=== PATIENT | male | born 1960 | race Hispanic/Latino ===

== ENCOUNTER 2021-01-11 18:35 | Inpatient (IN) | payer MEDICAID ==
[2021-01-11] MEDS ORDERED: ACETAMINOPHEN 325 MG TAB PO PRN (22:52)
--- NOTE | 2021-01-12 08:40 | History and Physical Report ---
GP History & Physical - History of Present Illness Date of admission: 01/11/21 Date of Examination: 01/12/21 Reason for Admission: Danger to self, Failure of Outpatient Treatment, Severe anxiety/depression History of Present Illness: Per admission note: Patient was admitted 01/12/20 at 2320. He was accompianed by [employer] employees. He is well groomed and wearing hospital scrubs. Patient presents as anxious. He is pleasant and cooperative. Patient is a & o x 4. He is able to give information regarding his medications and health hx. This patient states he has suffered from depression and anxiety for a long time. He has tried multiple medications. 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 He states he was using Suboxone after getting "hooked" on opiates. He reports it worked for him. He states he took it twice daily and never needed to take more but did not feel high. Patient has a long history of multiple suicide attempts by OD and cutting himself. He reports cutting relieves tension and ties into his not fearing . He states living with mental health issues has been difficult for him. Patient reports living by himself. He began to feel like cutting himself and went to the ED. Patient signed admission paperwork and was oriented to the unit. He presents as calmer than when he arrived. Tera Solis is a 60y/o male patient who states he was admitted into the hospital for "opiate addiction, SI, depression, and hallucinations." He is calm, cooperative and polite. The patient says he's been "very anxious and depressed." He says he "sees shadows, things crawling out of the carpet, and hears sasha nds."The patient denies any illicit drug. He says he's been clean from ETOH for about 6 months. He says he uses "nicotine patches." PAST PSYCHIATRIC HISTORY: Diagnoses: Depression Suicide attempts or Self-harm behavior: Yes Prior psychiatric hospitalizations: Yes Substance Abuse history: Opiates Previous psychiatric medications tried: Yes Outpatient treatment: Yes PAST MEDICAL HISTORY: None reported Family Psychiatric History: None reported or documented SOCIAL HISTORY Marital Status: single Living Arrangements: alone Employment Status: Disabled Access to guns/weapons: Denies Education: Some high school History of Abuse: None reported Legal History: None reported REVIEW OF SYSTEMS Constitutional: Negative for weight loss ENT: Negative for stridor Respiratory: Negative for cough or hemoptysis All other systems reviewed and are negative MENTAL STATUS EXAMINATION General Appearance and Behavior: Age appropriate, good hygiene, wearing appropriate clothes, good eye contact, cooperative polite with questioning. Cooperation: Participating/engaged Psychomotor Behavior: Psychomotor normal Mood: "depressed, anxious" Affect and affective range: congruent with stated mood Thought Process: Circumstantial, Illogical, Thought Content: SI, hallucinations Speech: Normal tone and pace Suicidal Ideation: Yes Homicidal Ideation: Denies Impulse Control: Limited Insight and Judgment: Limited insight and judgment Memory: Limited Attention: Divided attention impaired Orientation: Alert, oriented, Assessment and Plan (1) MDD, severe, with psychotic features Current Visit: Yes Status: Acute Treatment Plan Patient admitted for inpatient psychiatric evaluation, medication adjustment and close monitoring The patient's behavior, mood, sleep and appetite will be closely monitored. Patient enrolled in individual and group therapeutic sessions and encouraged to attend. Patient provided with a safe and structured environment. Patient's physical health needs will be addressed by the Hospitalist. Hospitalist Consulted Labs including CBC, CMP, Lipid profile and Hemoglobin A1C levels ordered for baseline reference Social Assessment will be completed and the Project Architect will work with patient and family to ensure a suitable and safe disposition Medication adjustment will be made as clinically indicated Olanzapine 2.5mg po daily Trazodone 50mg po qd Vistaril 25mg po BID Continued home medications Usual Wellness Congregation/Preservation: - Start Trazodone 50 mg po QHS & 50 mg po QHS PRN between 10 PM & 2 AM for insomnia - Start Melatonin 5 mg po QHS to promote circadian rhythm - Start [place]-3 for brain health, reduce impulsivity, and as adjunctive treatment for mood disorder, continue upon discharge given overall benefits. - Start B1 prophylaxis with 200 mg po for 5 days The patient agreed on the treatment plan, understood the risk, benefit, alternative treatment, potential consequence of no treatment, and gave informed consent. Estimated days: 2 Post hospital care: primary care provider, psychiatric provider Case staffed with Dr. Patton Legal Status: Voluntary Reaction to Hospitalization: Accepting Medications and Allergies Allergies Allergy/AdvReac Type Severity Reaction Status Date / Time aripiprazole Allergy Unknown Verified 01/11/21 19:00 Penicillins Allergy Unknown Verified 01/11/21 19:00 Home Medications Medication Instructions Recorded Confirmed Last Taken Type carvediloL [Coreg] 25 mg PO BID 01/11/21 01/11/21 Unknown History Amlodipine Besylate [Norvasc] 10 mg PO DAILY 01/12/21 01/12/21 Unknown History Aspirin EC [Halfprin EC] 81 mg PO QDAY 01/12/21 01/12/21 Unknown History AtorvaSTATin [Lipitor] 40 mg PO QHS 01/12/21 01/12/21 Unknown History Duloxetine HCl 60 mg PO DAILY 01/12/21 01/12/21 Unknown History Fenofibrate Nanocrystallized 48 mg PO DAILY 01/12/21 01/12/21 Unknown History [Fenofibrate] Gabapentin [Neurontin] 600 mg PO TID 01/12/21 01/12/21 Unknown History Sitagliptin Phos/Metformin HCl 1 each PO BID 01/12/21 01/12/21 Unknown History [Janumet 50-1,000 mg Tablet] Active Meds: Active Medications Acetaminophen (Acetaminophen 325 Mg Tab) 650 mg PO Q6H PRN PRN Reason: Pain, Mild (1-3) Trazodone HCl (Trazodone 50 Mg Tab) 50 mg PO QHS PRN PRN Reason: Insomnia Results - Results Labs/Vitals: Last Vital Signs Temp 97.5 F L 01/12/21 01:05 Pulse 85 01/12/21 01:05 Resp 18 01/12/21 01:05 BP 118/79 01/12/21 01:05 Pulse Ox 96 01/12/21 01:05 Physical Examination - Constitutional Vitals: Vital Signs Temp Pulse Resp BP Pulse Ox 97.5 F L 85 18 118/79 96 01/12/21 01:05 01/12/21 01:05 01/12/21 01:05 01/12/21 01:05 01/12/21 01:05 Temperature -Last 24 Hours Temperature 97.5 F Mental Status Exam - Vital signs Last Vital Signs Temp 97.5 F L 01/12/21 01:05 Pulse 85 01/12/21 01:05 Resp 18 01/12/21 01:05 BP 118/79 01/12/21 01:05 Pulse Ox 96 01/12/21 01:05 Physician Certification - Certification Statement Physician Certification Statement: This is an acknowledgement statement that TERA SOLIS is a 60 year old M who requires inpatient psychiatric admission for treatment which could reasonably be expected to improve the patient's condition for Estimated period of time patient will need to remain in the hospital: [ ] Plan for post-hospital care: [ ]
[2021-01-12] MEDS ORDERED: amLODIPine 5 MG TAB PO SCH (10:00)
[2021-01-12] MEDS ORDERED: NON-FORMULARY EACH (Duloxetine Hcl [Duloxetine Hcl] 60 MG Capsule.Dr) PO SCH (10:00)
[2021-01-12] MEDS ORDERED: hydrOXYzine PAMOATE 25 MG CAP PO SCH (10:00)
[2021-01-12] MEDS ORDERED: NON-FORMULARY EACH (Sitagliptin Phos/Metformin Hcl [Janumet 50-1,000 Mg Tablet] 1 EACH Tab PO SCH (10:00)
[2021-01-12] MEDS: DULoxetine 30 MG CAP PO SCH (10:46)
[2021-01-12] MEDS: ASPIRIN EC 81 MG TAB PO SCH (10:46)
[2021-01-12] MEDS: FENOFIBRATE 48 MG TAB PO SCH (10:46)
[2021-01-12] MEDS: carvediloL 25 MG TAB PO SCH ×2 (10:47→21:14)
[2021-01-12] MEDS: amLODIPine 10 MG TAB PO SCH (10:47)
--- NOTE | 2021-01-12 11:08 | Consultation ---
History of Present Illness - Reason for Consult Consult date: 01/12/21 Medical consult Requesting physician: JENNY BROWN - History of Present Illness 60-year-old male patient with multiple medical problems was admitted to [facility] for further evaluation management of MDD with psychotic symptoms. Hospitalist service was requested for medical consult. I have seen and evaluated the patient in his room Patient is calm and composed, responds to simple questions appropriately, no agitation or aggression Patient follows with his primary care physician, and reports that he is compliant with medications. Patient denies any chest pain or shortness of breath Denies any headache or dizziness Denies nausea vomiting or abdominal pain No other symptoms Past History Past Medical History: diabetes, GERD, hypertension, hyperlipidemia, hypothyroidism, other (Peripheral neuropathy, major depressive disorder with psychotic symptoms) Past Surgical History: No surgical history Social history: denies: smoking, alcohol abuse, prescription drug abuse Family history: no significant family history Medications and Allergies Allergies Allergy/AdvReac Type Severity Reaction Status Date / Time aripiprazole Allergy Unknown Verified 01/11/21 19:00 Penicillins Allergy Unknown Verified 01/11/21 19:00 Home Medications Medication Instructions Recorded Confirmed Last Taken Type carvediloL [Coreg] 25 mg PO BID 01/11/21 01/11/21 Unknown History Amlodipine Besylate [Norvasc] 10 mg PO DAILY 01/12/21 01/12/21 Unknown History Aspirin EC [Halfprin EC] 81 mg PO QDAY 01/12/21 01/12/21 Unknown History AtorvaSTATin [Lipitor] 40 mg PO QHS 01/12/21 01/12/21 Unknown History Duloxetine HCl 60 mg PO DAILY 01/12/21 01/12/21 Unknown History Fenofibrate Nanocrystallized 48 mg PO DAILY 01/12/21 01/12/21 Unknown History [Fenofibrate] Gabapentin [Neurontin] 600 mg PO TID 01/12/21 01/12/21 Unknown History Sitagliptin Phos/Metformin HCl 1 each PO BID 01/12/21 01/12/21 Unknown History [Janumet 50-1,000 mg Tablet] Active Meds: Active Medications Acetaminophen (Acetaminophen 325 Mg Tab) 650 mg PO Q6H PRN PRN Reason: Pain, Mild (1-3) Amlodipine Besylate (Amlodipine 10 Mg Tab) 10 mg PO DAILY [facility] Last Admin: 01/12/21 10:47 Dose: 10 mg Documented by: Aspirin (Aspirin Ec 81 Mg Tab) 81 mg PO QDAY [facility] Last Admin: 01/12/21 10:46 Dose: 81 mg Documented by: Atorvastatin Calcium (Atorvastatin 40 Mg Tab) 40 mg PO QHS [facility] Carvedilol (Carvedilol 25 Mg Tab) 25 mg PO BID [facility] Last Admin: 01/12/21 10:47 Dose: 25 mg Documented by: Duloxetine HCl (Duloxetine 30 Mg Cap) 60 mg PO QDAY [facility] Last Admin: 01/12/21 10:46 Dose: 60 mg Documented by: Fenofibrate (Fenofibrate 48 Mg Tab) 48 mg PO DAILY [facility] Last Admin: 01/12/21 10:46 Dose: 48 mg Documented by: Gabapentin (Gabapentin 300 Mg Cap) 600 mg PO Q8HR [facility] Hydroxyzine Pamoate (Hydroxyzine Pamoate 25 Mg Cap) 25 mg PO BID [facility] Miscellaneous Medication (Sitagliptin Phos/Metformin Hcl [Janumet 50-1,000 Mg Tablet]) 1 each PO BID [facility] Olanzapine (Olanzapine 2.5 Mg Tab) 2.5 mg PO QDAY [facility] Last Admin: 01/12/21 10:46 Dose: 2.5 mg Documented by: Trazodone HCl (Trazodone 50 Mg Tab) 50 mg PO QHS PRN PRN Reason: Insomnia Review of Systems Constitutional: no weight loss, no weight gain, no fever, no chills Ears, nose, mouth and throat: no nasal congestion, no nasal discharge Cardiovascular: no chest pain, no orthopnea Respiratory: no cough, no shortness of breath Gastrointestinal: no abdominal pain, no nausea, no vomiting Genitourinary Male: no dysuria, no hematuria Musculoskeletal: no myalgias, no arthritis Integumentary: no rash, no lesions Neurological: no seizures, no syncope Psychiatric: anxiety, paranoia, depression Endocrine: no cold intolerance, no heat intolerance Hematologic/Lymphatic: no easy bruising, no easy bleeding Allergic/Immunologic: no urticaria, no allergic rhinitis Exam - Constitutional Vitals: Temp Pulse Resp BP Pulse Ox 97.7 F 83 18 115/77 95 01/12/21 08:05 01/12/21 10:47 01/12/21 08:05 01/12/21 10:47 01/12/21 08:05 General appearance: Present: no acute distress, well-nourished, obese - EENT Eyes: Present: PERRL, EOM intact - Neck Neck: Present: supple, normal ROM - Respiratory Respiratory effort: normal Respiratory: bilateral: diminished, negative: rales, rhonchi, wheezing - Cardiovascular Rhythm: regular Heart Sounds: Present: S1 & S2 - Extremities Extremities: no ischemia, No edema - Abdominal General gastrointestinal: Present: soft, non-tender, non-distended, normal bowel sounds - Integumentary Integumentary: Present: clear, warm - Musculoskeletal Musculoskeletal: strength equal bilaterally, generalized weakness - Psychiatric Psychiatric: appropriate mood/affect, cooperative - Neurologic Neurologic: moves all extremities Results - Labs CBC & Chem 7: 01/12/21 13:19 01/12/21 13:19 Assessment and Plan --History of GERD; Protonix, supportive care --Hypertension; moderate control Resume home antihypertensives, as needed medications --Hypothyroidism; resume home Synthroid Supportive care --Type 2 diabetes mellitus; Accu-Cheks, sliding scale coverage, ADA diet Oral hypoglycemics, check A1c --Dyslipidemia; Low-cholesterol diet, continue statin --Obesity; BMI 33.2 Patient needs weight reduction when medically stable --History of bipolar/acute psychosis; management per psych --DVT prophylaxis; SCDs while at rest, ambulate as tolerated --Full CODE STATUS we will closely monitor the patient and adjust the management as needed Thank you for this consultation, we will follow the patient along with you as needed Call us with questions Plan of care reviewed with the patient his nurse
[2021-01-12 13:50] LABS: Basophils % (Auto) 0.6 % (0.0-1.8); Eosinophils # (Auto) 0.1 K/mm3 (0.0-0.4); Eosinophils % (Auto) 2.1 % (0.0-4.3); Hematocrit 40.2 % (35.5-45.6); Hemoglobin 13.3 gm/dl (11.8-15.2); Lymphocytes # (Auto) 1.6 K/mm3 (1.2-5.4); Lymphocytes % (Auto) 25.9 % (13.4-35.0); Mean Corpuscular HGB Conc 33 % (32-34); Mean Corpuscular Volume 87 fl (84-94); Monocytes # (Auto) 0.6 K/mm3 (0.0-0.8); Monocytes % (Auto) 8.9 % (0.0-7.3); Platelet Count 277 K/mm3 (140-440); Red Blood Count 4.62 M/mm3 (3.65-5.03); Red Cell Distribution Width 15.1 % (13.2-15.2)
[2021-01-12] MEDS ORDERED: NON-FORMULARY EACH (Gabapentin [Neurontin] 600 MG Tablet) PO SCH (14:00)
[2021-01-12 14:13] LABS: Alanine Aminotransferase 20 units/L (7-56); Albumin 3.8 g/dL (3.9-5); BUN/Creatinine Ratio 18; Blood Urea Nitrogen 14 mg/dL (9-20); HDL Cholesterol 15 mg/dL (40-59); Hemolysis Index 9; LDL Cholesterol,Direct 30 mg/dL (50-130)
[2021-01-12] MEDS: GABAPENTIN 300 MG CAP PO SCH ×2 (14:14→21:14)
[2021-01-12] MEDS: hydrOXYzine HCL 25 MG TAB PO SCH ×2 (14:15→21:13)
[2021-01-12] MEDS: INSULIN LISPRO 100 UNIT/ML SUB-Q SCH ×2 (17:57→21:16)
[2021-01-12] MEDS ORDERED: traZODone 50 MG TAB PO SCH (22:00)
[2021-01-12] MEDS ORDERED: traZODone 50 MG TAB PO PRN (22:00)
[2021-01-13] MEDS: GABAPENTIN 300 MG CAP PO SCH ×2 (06:37→21:21)
--- NOTE | 2021-01-13 08:49 | Progress Note ---
Subjective Date of service: 01/13/21 Principal diagnosis: MDD with psychotic features Subjective Comment: The patient was seen today, he still verbalizes depression and "passive thoughts" of suicide. H says he has this thought "of not wanting to be around any more." The patient denies hallucinations at this time. He says he was restless last night. REVIEW OF SYSTEMS Constitutional: Negative for weight loss ENT: Negative for stridor Respiratory: Negative for cough or hemoptysis All other systems reviewed and are negative MENTAL STATUS EXAMINATION General Appearance and Behavior: Age appropriate, good hygiene, wearing appropriate clothes, good eye contact, cooperative polite with questioning. Cooperation: Participating/engaged Psychomotor Behavior: Psychomotor normal Mood: "depressed" Affect and affective range: congruent with stated mood Thought Process: Circumstantial, Illogical, Thought Content: SI, hallucinations Speech: Normal tone and pace Suicidal Ideation: Yes Homicidal Ideation: Denies Impulse Control: Limited Insight and Judgment: Limited insight and judgment Memory: Limited Attention: Divided attention impaired Orientation: Alert, oriented, Assessment and Plan (1) MDD, severe, with psychotic features Current Visit: Yes Status: Acute Treatment Plan Patient admitted for inpatient psychiatric evaluation, medication adjustment and close monitoring The patient's behavior, mood, sleep and appetite will be closely monitored. Patient enrolled in individual and group therapeutic sessions and encouraged to attend. Patient provided with a safe and structured environment. Patient's physical health needs will be addressed by the Hospitalist. Hospitalist Consulted Labs including CBC, CMP, Lipid profile and Hemoglobin A1C levels ordered for baseline reference Social Assessment will be completed and the Flight Controls Engineer will work with patient and family to ensure a suitable and safe disposition Medication adjustment will be made as clinically indicated Continue Olanzapine 2.5mg po daily Increase Trazodone 75mg po qd Continue Vistaril 25mg po BID Continued home medications Usual Wellness Presybeterian/Preservation: - Start Trazodone 50 mg po QHS & 50 mg po QHS PRN between 10 PM & 2 AM for insomnia - Start Melatonin 5 mg po QHS to promote circadian rhythm - Start [employer]-3 for brain health, reduce impulsivity, and as adjunctive treatment for mood disorder, continue upon discharge given overall benefits. - Start B1 prophylaxis with 200 mg po for 5 days The patient agreed on the treatment plan, understood the risk, benefit, alternative treatment, potential consequence of no treatment, and gave informed consent. Estimated days: 2 Post hospital care: primary care provider, psychiatric provider Case staffed with Dr. Patton Medications and Allergies Allergies Allergy/AdvReac Type Severity Reaction Status Date / Time aripiprazole Allergy Unknown Verified 01/11/21 19:00 Penicillins Allergy Unknown Verified 01/11/21 19:00 Home Medications Medication Instructions Recorded Confirmed Last Taken Type carvediloL [Coreg] 25 mg PO BID 01/11/21 01/11/21 Unknown History Amlodipine Besylate [Norvasc] 10 mg PO DAILY 01/12/21 01/12/21 Unknown History Aspirin EC [Halfprin EC] 81 mg PO QDAY 01/12/21 01/12/21 Unknown History AtorvaSTATin [Lipitor] 40 mg PO QHS 01/12/21 01/12/21 Unknown History Duloxetine HCl 60 mg PO DAILY 01/12/21 01/12/21 Unknown History Fenofibrate Nanocrystallized 48 mg PO DAILY 01/12/21 01/12/21 Unknown History [Fenofibrate] Gabapentin [Neurontin] 600 mg PO TID 01/12/21 01/12/21 Unknown History Sitagliptin Phos/Metformin HCl 1 each PO BID 01/12/21 01/12/21 Unknown History [Janumet 50-1,000 mg Tablet] Active Meds: Active Medications Acetaminophen (Acetaminophen 325 Mg Tab) 650 mg PO Q6H PRN PRN Reason: Pain, Mild (1-3) Amlodipine Besylate (Amlodipine 10 Mg Tab) 10 mg PO DAILY [facility] Last Admin: 01/12/21 10:47 Dose: 10 mg Documented by: Aspirin (Aspirin Ec 81 Mg Tab) 81 mg PO QDAY [facility] Last Admin: 01/12/21 10:46 Dose: 81 mg Documented by: Atorvastatin Calcium (Atorvastatin 40 Mg Tab) 40 mg PO QHS [facility] Last Admin: 01/12/21 21:14 Dose: 40 mg Documented by: Carvedilol (Carvedilol 25 Mg Tab) 25 mg PO BID [facility] Last Admin: 01/12/21 21:14 Dose: 25 mg Documented by: Duloxetine HCl (Duloxetine 30 Mg Cap) 60 mg PO QDAY [facility] Last Admin: 01/12/21 10:46 Dose: 60 mg Documented by: Fenofibrate (Fenofibrate 48 Mg Tab) 48 mg PO DAILY [facility] Last Admin: 01/12/21 10:46 Dose: 48 mg Documented by: Gabapentin (Gabapentin 300 Mg Cap) 600 mg PO Q8HR [facility] Last Admin: 01/13/21 06:37 Dose: 600 mg Documented by: Hydroxyzine HCl (Hydroxyzine Hcl 25 Mg Tab) 25 mg PO BID [facility] Last Admin: 01/12/21 21:13 Dose: 25 mg Documented by: Insulin Human Lispro (Insulin Lispro 100 Unit/Ml) 0 unit SUB-Q ACHS [facility]; Protocol Last Admin: 01/12/21 21:16 Dose: Not Given Documented by: Linagliptin (Linagliptin 5 Mg Tab) 5 mg PO QDAY [facility] Metformin HCl (Metformin 500 Mg Tab) 1,000 mg PO BIDDIAB [facility] Olanzapine (Olanzapine 2.5 Mg Tab) 2.5 mg PO QDAY [facility] Last Admin: 01/12/21 10:46 Dose: 2.5 mg Documented by: Trazodone HCl (Trazodone 50 Mg Tab) 50 mg PO QHS PRN PRN Reason: Insomnia Last Admin: 01/12/21 21:15 Dose: 50 mg Documented by: Results - Results Labs/Vitals: Laboratory Last Values WBC 6.3 K/mm3 (4.5-11.0) 01/12/21 13:19 RBC 4.62 M/mm3 (3.65-5.03) 01/12/21 13:19 Hgb 13.3 gm/dl (11.8-15.2) 01/12/21 13:19 Hct 40.2 % (35.5-45.6) 01/12/21 13:19 MCV 87 fl (84-94) 01/12/21 13:19 MCH 29 pg (28-32) 01/12/21 13:19 MCHC 33 % (32-34) 01/12/21 13:19 RDW 15.1 % (13.2-15.2) 01/12/21 13:19 Plt Count 277 K/mm3 (140-440) 01/12/21 13:19 Lymph % (Auto) 25.9 % (13.4-35.0) 01/12/21 13:19 [place] % (Auto) 8.9 % (0.0-7.3) H 01/12/21 13:19 Eos % (Auto) 2.1 % (0.0-4.3) 01/12/21 13:19 Baso % (Auto) 0.6 % (0.0-1.8) 01/12/21 13:19 Lymph # (Auto) 1.6 K/mm3 (1.2-5.4) 01/12/21 13:19 [place] # (Auto) 0.6 K/mm3 (0.0-0.8) 01/12/21 13:19 Eos # (Auto) 0.1 K/mm3 (0.0-0.4) 01/12/21 13:19 Baso # (Auto) 0.0 K/mm3 (0.0-0.1) 01/12/21 13:19 Seg Neutrophils % 62.5 % (40.0-70.0) 01/12/21 13:19 Seg Neutrophils # 3.9 K/mm3 (1.8-7.7) 01/12/21 13:19 Sodium 139 mmol/L (137-145) 01/12/21 13:19 Potassium 4.5 mmol/L (3.6-5.0) 01/12/21 13:19 Chloride 101.4 mmol/L (98-107) 01/12/21 13:19 Carbon Dioxide 29 mmol/L (22-30) 01/12/21 13:19 Anion Gap 13 mmol/L 01/12/21 13:19 BUN 14 mg/dL (9-20) 01/12/21 13:19 Creatinine 0.8 mg/dL (0.8-1.3) 01/12/21 13:19 Estimated GFR > 60 ml/min 01/12/21 13:19 BUN/Creatinine Ratio 18 % 01/12/21 13:19 Glucose 157 mg/dL (75-100) H 01/12/21 13:19 POC Glucose 117 mg/dL (70-105) H 01/12/21 20:13 Hemoglobin A1c 6.4 % (4-6) H 01/12/21 13:19 Calcium 9.0 mg/dL (8.4-10.2) 01/12/21 13:19 Total Bilirubin 0.40 mg/dL (0.1-1.2) 01/12/21 13:19 AST 28 units/L (5-40) 01/12/21 13:19 ALT 20 units/L (7-56) 01/12/21 13:19 Alkaline Phosphatase 77 units/L (35-129) 01/12/21 13:19 Total Protein 6.1 g/dL (6.3-8.2) L 01/12/21 13:19 Albumin 3.8 g/dL (3.9-5) L 01/12/21 13:19 Albumin/Globulin Ratio 1.7 % 01/12/21 13:19 Triglycerides 161 mg/dL (2-149) H 01/12/21 13:19 Cholesterol 66 mg/dL (50-199) 01/12/21 13:19 LDL Cholesterol Direct 30 mg/dL (50-130) L 01/12/21 13:19 HDL Cholesterol 15 mg/dL (40-59) L 01/12/21 13:19 Cholesterol/HDL Ratio 4.40 % 01/12/21 13:19 TSH 0.620 mlU/mL (0.270-4.200) 01/12/21 13:19 Last Vital Signs Temp 97.8 F 01/12/21 19:45 Pulse 76 01/12/21 21:14 Resp 16 01/12/21 19:45 BP 100/66 01/12/21 21:14 Pulse Ox 95 01/12/21 19:45
[2021-01-13] MEDS: amLODIPine 10 MG TAB PO SCH (10:56)
[2021-01-13] MEDS: FENOFIBRATE 48 MG TAB PO SCH (10:56)
[2021-01-13] MEDS: ASPIRIN EC 81 MG TAB PO SCH (10:57)
[2021-01-13] MEDS: DULoxetine 30 MG CAP PO SCH (10:58)
[2021-01-13] MEDS: carvediloL 25 MG TAB PO SCH ×2 (10:58→21:21)
[2021-01-13] MEDS: LINAGLIPTIN 5 MG TAB PO SCH (10:59)
[2021-01-13] MEDS: hydrOXYzine HCL 25 MG TAB PO SCH ×2 (11:00→21:20)
[2021-01-13] MEDS: traZODone 50 MG TAB PO SCH (21:20)
[2021-01-13] MEDS ORDERED: cloNIDine 0.1 MG TAB PO PRN (21:59)
[2021-01-14] MEDS: GABAPENTIN 300 MG CAP PO SCH ×4 (06:23→21:27)
[2021-01-14] MEDS: INSULIN LISPRO 100 UNIT/ML SUB-Q SCH ×7 (07:30→21:31)
--- NOTE | 2021-01-14 08:19 | Progress Note ---
Subjective Date of service: 01/14/21 Principal diagnosis: MDD with psychotic features Subjective Comment: Per Psych Nurse: Last evening the patient was pleasant and cooperative. He continues to be depressed. He admits to continued si. His appetite is good and he is medication compliant. Overnight the patient rested quietly. He presents as sleeping 8 hours. Will continue to monitor patient for safety. Psych Progress HPI Patient describes a good and stable mood, denies being depressed or excessively nervous. Patient eats and sleeps well. Patient denies panic attacks, recurrent nightmares or flashbacks. Patient denies symptoms suggestive of OCD or PTSD. Patient denies hallucinations, paranoia, thought interference and no features suggestive of hypomania or alli. Patiently completely denies suicidal or homicidal thoughts. Reason for continuing inpatient treatment:. Plan for safety discharge at this time Review of Symptoms: Constitutional: Negative for weight loss ENT: Negative for stridor Respiratory: Negative for cough or hemoptysis All other systems reviewed and are negative MENTAL STATUS EXAMINATION General Appearance and Behavior: Age appropriate, good hygiene, wearing appropriate clothes, good eye contact, cooperative polite with questioning. Cooperation: Participating/engaged Psychomotor Behavior: unremarkable and within normal limits Mood: Good Affect and affective range: congruent with mood Thought Process: Fluent/Logical, Thought Content: Within reality, Speech: Normal volume, Regular rate and rhythm, Intellectual Functioning: Average Suicidal Ideation: Denies SI Homicidal Ideation: Denies HI Impulse Control: Unimpaired Insight and Judgment: Normal insight and judgment, Memory: Normal, Attention: Normal, Orientation: Alert, oriented, Treatment Plan Continue current medications Patient admitted for inpatient psychiatric evaluation, medication adjustment and close monitoring The patient's behavior, mood, sleep and appetite will be closely monitored. Patient enrolled in individual and group therapeutic sessions and encouraged to attend. Patient provided with a safe and structured environment. Patient's physical health needs will be addressed by the Hospitalist. Hospitalist Consulted Labs including CBC, CMP, Lipid profile and Hemoglobin A1C levels ordered for baseline reference Social Assessment will be completed and the Molder Machine will work with patient and family to ensure a suitable and safe disposition Medication adjustment will be made as clinically indicated Usual Wellness Episcopal/Preservation: - Start Trazodone 50 mg po QHS & 50 mg po QHS PRN between 10 PM & 2 AM for insomnia - Start Melatonin 5 mg po QHS to promote circadian rhythm - Start [place]-3 for brain health, reduce impulsivity, and as adjunctive treatment for mood disorder, continue upon discharge given overall benefits. - Start B1 prophylaxis with 200 mg po for 5 days The patient agreed on the treatment plan, understood the risk, benefit, alternative treatment, potential consequence of no treatment, and gave informed consent. Initial Certification Inpatient psych services: I certify that the inpatient psychiatric services are required for treatment that could reasonably be expected to improve the patient's condition. Estimated days: 3 Post hospital care: primary care provider, psychiatric provider Medications and Allergies Allergies Allergy/AdvReac Type Severity Reaction Status Date / Time aripiprazole Allergy Unknown Verified 01/11/21 19:00 Penicillins Allergy Unknown Verified 01/11/21 19:00 Home Medications Medication Instructions Recorded Confirmed Last Taken Type carvediloL [Coreg] 25 mg PO BID 01/11/21 01/11/21 Unknown History Amlodipine Besylate [Norvasc] 10 mg PO DAILY 01/12/21 01/12/21 Unknown History Aspirin EC [Halfprin EC] 81 mg PO QDAY 01/12/21 01/12/21 Unknown History AtorvaSTATin [Lipitor] 40 mg PO QHS 01/12/21 01/12/21 Unknown History Duloxetine HCl 60 mg PO DAILY 01/12/21 01/12/21 Unknown History Fenofibrate Nanocrystallized 48 mg PO DAILY 01/12/21 01/12/21 Unknown History [Fenofibrate] Gabapentin [Neurontin] 600 mg PO TID 01/12/21 01/12/21 Unknown History Sitagliptin Phos/Metformin HCl 1 each PO BID 01/12/21 01/12/21 Unknown History [Janumet 50-1,000 mg Tablet] Active Meds: Active Medications Acetaminophen (Acetaminophen 325 Mg Tab) 650 mg PO Q6H PRN PRN Reason: Pain, Mild (1-3) Amlodipine Besylate (Amlodipine 10 Mg Tab) 10 mg PO DAILY [facility] Last Admin: 01/13/21 10:56 Dose: 10 mg Documented by: Aspirin (Aspirin Ec 81 Mg Tab) 81 mg PO QDAY [facility] Last Admin: 01/13/21 10:57 Dose: 81 mg Documented by: Atorvastatin Calcium (Atorvastatin 40 Mg Tab) 40 mg PO QHS [facility] Last Admin: 01/13/21 21:20 Dose: 40 mg Documented by: Carvedilol (Carvedilol 25 Mg Tab) 25 mg PO BID [facility] Last Admin: 01/13/21 21:21 Dose: 25 mg Documented by: Duloxetine HCl (Duloxetine 30 Mg Cap) 60 mg PO QDAY [facility] Last Admin: 01/13/21 10:58 Dose: 60 mg Documented by: Fenofibrate (Fenofibrate 48 Mg Tab) 48 mg PO DAILY [facility] Last Admin: 01/13/21 10:56 Dose: 48 mg Documented by: Gabapentin (Gabapentin 300 Mg Cap) 600 mg PO Q8HR [facility] Last Admin: 01/14/21 06:23 Dose: 600 mg Documented by: Hydroxyzine HCl (Hydroxyzine Hcl 25 Mg Tab) 25 mg PO BID [facility] Last Admin: 01/13/21 21:20 Dose: 25 mg Documented by: Insulin Human Lispro (Insulin Lispro 100 Unit/Ml) 0 unit SUB-Q ACHS [facility]; Protocol Last Admin: 01/12/21 21:16 Dose: Not Given Documented by: Linagliptin (Linagliptin 5 Mg Tab) 5 mg PO QDAY [facility] Last Admin: 01/13/21 10:59 Dose: 5 mg Documented by: Metformin HCl (Metformin 500 Mg Tab) 1,000 mg PO BIDDIAB [facility] Olanzapine (Olanzapine 2.5 Mg Tab) 2.5 mg PO QDAY [facility] Last Admin: 01/12/21 10:46 Dose: 2.5 mg Documented by: Trazodone HCl (Trazodone 50 Mg Tab) 75 mg PO QHS [facility] Last Admin: 01/13/21 21:20 Dose: 75 mg Documented by: Results - Results Labs/Vitals: Laboratory Last Values WBC 6.3 K/mm3 (4.5-11.0) 01/12/21 13:19 RBC 4.62 M/mm3 (3.65-5.03) 01/12/21 13:19 Hgb 13.3 gm/dl (11.8-15.2) 01/12/21 13:19 Hct 40.2 % (35.5-45.6) 01/12/21 13:19 MCV 87 fl (84-94) 01/12/21 13:19 MCH 29 pg (28-32) 01/12/21 13:19 MCHC 33 % (32-34) 01/12/21 13:19 RDW 15.1 % (13.2-15.2) 01/12/21 13:19 Plt Count 277 K/mm3 (140-440) 01/12/21 13:19 Lymph % (Auto) 25.9 % (13.4-35.0) 01/12/21 13:19 [place] % (Auto) 8.9 % (0.0-7.3) H 01/12/21 13:19 Eos % (Auto) 2.1 % (0.0-4.3) 01/12/21 13:19 Baso % (Auto) 0.6 % (0.0-1.8) 01/12/21 13:19 Lymph # (Auto) 1.6 K/mm3 (1.2-5.4) 01/12/21 13:19 [place] # (Auto) 0.6 K/mm3 (0.0-0.8) 01/12/21 13:19 Eos # (Auto) 0.1 K/mm3 (0.0-0.4) 01/12/21 13:19 Baso # (Auto) 0.0 K/mm3 (0.0-0.1) 01/12/21 13:19 Seg Neutrophils % 62.5 % (40.0-70.0) 01/12/21 13:19 Seg Neutrophils # 3.9 K/mm3 (1.8-7.7) 01/12/21 13:19 Sodium 139 mmol/L (137-145) 01/12/21 13:19 Potassium 4.5 mmol/L (3.6-5.0) 01/12/21 13:19 Chloride 101.4 mmol/L (98-107) 01/12/21 13:19 Carbon Dioxide 29 mmol/L (22-30) 01/12/21 13:19 Anion Gap 13 mmol/L 01/12/21 13:19 BUN 14 mg/dL (9-20) 01/12/21 13:19 Creatinine 0.8 mg/dL (0.8-1.3) 01/12/21 13:19 Estimated GFR > 60 ml/min 01/12/21 13:19 BUN/Creatinine Ratio 18 % 01/12/21 13:19 Glucose 157 mg/dL (75-100) H 01/12/21 13:19 POC Glucose 141 mg/dL (70-105) H 01/13/21 20:00 Hemoglobin A1c 6.4 % (4-6) H 01/12/21 13:19 Calcium 9.0 mg/dL (8.4-10.2) 01/12/21 13:19 Total Bilirubin 0.40 mg/dL (0.1-1.2) 01/12/21 13:19 AST 28 units/L (5-40) 01/12/21 13:19 ALT 20 units/L (7-56) 01/12/21 13:19 Alkaline Phosphatase 77 units/L (35-129) 01/12/21 13:19 Total Protein 6.1 g/dL (6.3-8.2) L 01/12/21 13:19 Albumin 3.8 g/dL (3.9-5) L 01/12/21 13:19 Albumin/Globulin Ratio 1.7 % 01/12/21 13:19 Triglycerides 161 mg/dL (2-149) H 01/12/21 13:19 Cholesterol 66 mg/dL (50-199) 01/12/21 13:19 LDL Cholesterol Direct 30 mg/dL (50-130) L 01/12/21 13:19 HDL Cholesterol 15 mg/dL (40-59) L 01/12/21 13:19 Cholesterol/HDL Ratio 4.40 % 01/12/21 13:19 TSH 0.620 mlU/mL (0.270-4.200) 01/12/21 13:19 Last Vital Signs Temp 97.4 F L 01/13/21 07:15 Pulse 94 H 01/13/21 21:21 Resp 20 01/13/21 07:15 BP 109/66 01/13/21 21:21 Pulse Ox 95 01/13/21 07:15
--- NOTE | 2021-01-14 12:21 | Progress Note ---
Assessment and Plan Assessment and plan: --History of GERD; Protonix, supportive care --Hypertension; moderate control Resume home antihypertensives, as needed medications --Hypothyroidism; resume home Synthroid Supportive care --Type 2 diabetes mellitus; Accu-Cheks, sliding scale coverage, ADA diet Oral hypoglycemics, A1c 6.4 --Dyslipidemia; Low-cholesterol diet, continue statin --Obesity; BMI 33.2 Patient needs weight reduction when medically stable --History of bipolar/acute psychosis; management per psych --DVT prophylaxis; SCDs while at rest, ambulate as tolerated --Full CODE STATUS we will closely monitor the patient and adjust the management as needed Continue current management Plan of care reviewed with the patient his nurse History Interval history: I have seen and examined the patient in the activity room this morning No new complaints, no new events reported by the nursing staff Hospitalist Physical - Constitutional Vitals: Temp Pulse Resp BP Pulse Ox 97.4 F L 94 H 20 109/66 95 01/13/21 07:15 01/13/21 21:21 01/13/21 07:15 01/13/21 21:21 01/13/21 07:15 General appearance: Present: no acute distress, well-nourished, obese - EENT Eyes: Present: PERRL, EOM intact - Neck Neck: Present: supple, normal ROM - Respiratory Respiratory effort: normal Respiratory: bilateral: diminished, negative: rales, rhonchi, wheezing - Cardiovascular Rhythm: regular Heart Sounds: Present: S1 & S2 - Extremities Extremities: no ischemia, No edema - Abdominal General gastrointestinal: soft, non-tender, non-distended, normal bowel sounds - Integumentary Integumentary: Present: clear, warm - Psychiatric Psychiatric: appropriate mood/affect, cooperative - Neurologic Neurologic: CNII-XII intact, moves all extremities Results - Labs CBC & Chem 7: 01/12/21 13:19 01/12/21 13:19 Labs: Laboratory Last Values WBC 6.3 K/mm3 (4.5-11.0) 01/12/21 13:19 RBC 4.62 M/mm3 (3.65-5.03) 01/12/21 13:19 Hgb 13.3 gm/dl (11.8-15.2) 01/12/21 13:19 Hct 40.2 % (35.5-45.6) 01/12/21 13:19 MCV 87 fl (84-94) 01/12/21 13:19 MCH 29 pg (28-32) 01/12/21 13:19 MCHC 33 % (32-34) 01/12/21 13:19 RDW 15.1 % (13.2-15.2) 01/12/21 13:19 Plt Count 277 K/mm3 (140-440) 01/12/21 13:19 Lymph % (Auto) 25.9 % (13.4-35.0) 01/12/21 13:19 [place] % (Auto) 8.9 % (0.0-7.3) H 01/12/21 13:19 Eos % (Auto) 2.1 % (0.0-4.3) 01/12/21 13:19 Baso % (Auto) 0.6 % (0.0-1.8) 01/12/21 13:19 Lymph # (Auto) 1.6 K/mm3 (1.2-5.4) 01/12/21 13:19 [place] # (Auto) 0.6 K/mm3 (0.0-0.8) 01/12/21 13:19 Eos # (Auto) 0.1 K/mm3 (0.0-0.4) 01/12/21 13:19 Baso # (Auto) 0.0 K/mm3 (0.0-0.1) 01/12/21 13:19 Seg Neutrophils % 62.5 % (40.0-70.0) 01/12/21 13:19 Seg Neutrophils # 3.9 K/mm3 (1.8-7.7) 01/12/21 13:19 Sodium 139 mmol/L (137-145) 01/12/21 13:19 Potassium 4.5 mmol/L (3.6-5.0) 01/12/21 13:19 Chloride 101.4 mmol/L (98-107) 01/12/21 13:19 Carbon Dioxide 29 mmol/L (22-30) 01/12/21 13:19 Anion Gap 13 mmol/L 01/12/21 13:19 BUN 14 mg/dL (9-20) 01/12/21 13:19 Creatinine 0.8 mg/dL (0.8-1.3) 01/12/21 13:19 Estimated GFR > 60 ml/min 01/12/21 13:19 BUN/Creatinine Ratio 18 % 01/12/21 13:19 Glucose 157 mg/dL (75-100) H 01/12/21 13:19 POC Glucose 102 mg/dL (70-105) 01/14/21 12:06 Hemoglobin A1c 6.4 % (4-6) H 01/12/21 13:19 Calcium 9.0 mg/dL (8.4-10.2) 01/12/21 13:19 Total Bilirubin 0.40 mg/dL (0.1-1.2) 01/12/21 13:19 AST 28 units/L (5-40) 01/12/21 13:19 ALT 20 units/L (7-56) 01/12/21 13:19 Alkaline Phosphatase 77 units/L (35-129) 01/12/21 13:19 Total Protein 6.1 g/dL (6.3-8.2) L 01/12/21 13:19 Albumin 3.8 g/dL (3.9-5) L 01/12/21 13:19 Albumin/Globulin Ratio 1.7 % 01/12/21 13:19 Triglycerides 161 mg/dL (2-149) H 01/12/21 13:19 Cholesterol 66 mg/dL (50-199) 01/12/21 13:19 LDL Cholesterol Direct 30 mg/dL (50-130) L 01/12/21 13:19 HDL Cholesterol 15 mg/dL (40-59) L 01/12/21 13:19 Cholesterol/HDL Ratio 4.40 % 01/12/21 13:19 TSH 0.620 mlU/mL (0.270-4.200) 01/12/21 13:19 Lara/IV: Voiding Method Toilet Active Medications - Current Medications Current Medications: Generic Name Dose Route Start Last Admin Trade Name Freq PRN Reason Stop Dose Admin Acetaminophen 650 mg 01/11/21 22:52 Acetaminophen 325 Mg Tab PO Q6H PRN Pain, Mild (1-3) Amlodipine Besylate 10 mg 01/12/21 10:00 01/13/21 10:56 Amlodipine 10 Mg Tab PO 10 mg DAILY GIANLUCA Administration Aspirin 81 mg 01/12/21 10:00 01/13/21 10:57 Aspirin Ec 81 Mg Tab PO 81 mg QDAY GIANLUCA Administration Atorvastatin Calcium 40 mg 01/12/21 22:00 01/13/21 21:20 Atorvastatin 40 Mg Tab PO 40 mg QHS GIANLUCA Administration Carvedilol 25 mg 01/12/21 10:00 01/13/21 21:21 Carvedilol 25 Mg Tab PO 25 mg BID GIANLUCA Administration Duloxetine HCl 60 mg 01/12/21 10:00 01/13/21 10:58 Duloxetine 30 Mg Cap PO 60 mg QDAY GIANLUCA Administration Fenofibrate 48 mg 01/12/21 10:00 01/13/21 10:56 Fenofibrate 48 Mg Tab PO 48 mg DAILY GIANLUCA Administration Gabapentin 600 mg 01/12/21 14:00 01/14/21 06:23 Gabapentin 300 Mg Cap PO 600 mg Q8HR GIANLUCA Administration Hydroxyzine HCl 25 mg 01/12/21 15:00 01/13/21 21:20 Hydroxyzine Hcl 25 Mg Tab PO 25 mg BID GIANLUCA Administration Insulin Human Lispro 0 unit 01/12/21 18:00 01/12/21 21:16 Insulin Lispro 100 Unit/Ml SUB-Q Not Given ACHS GIANLUCA Protocol Linagliptin 5 mg 01/13/21 10:00 01/13/21 10:59 Linagliptin 5 Mg Tab PO 5 mg QDAY GIANLUCA Administration Metformin HCl 1,000 mg 01/13/21 08:00 Metformin 500 Mg Tab PO BIDDIAB GIANLUCA Olanzapine 2.5 mg 01/12/21 10:00 01/12/21 10:46 Olanzapine 2.5 Mg Tab PO 2.5 mg QDAY GIANLUCA Administration Trazodone HCl 75 mg 01/13/21 22:00 01/13/21 21:20 Trazodone 50 Mg Tab PO 75 mg QHS GIANLUCA Administration
[2021-01-14] MEDS: LINAGLIPTIN 5 MG TAB PO SCH (12:33)
[2021-01-14] MEDS: FENOFIBRATE 48 MG TAB PO SCH (12:33)
[2021-01-14] MEDS: hydrOXYzine HCL 25 MG TAB PO SCH ×2 (12:34→21:27)
[2021-01-14] MEDS: carvediloL 25 MG TAB PO SCH ×2 (12:34→21:28)
[2021-01-14] MEDS: ASPIRIN EC 81 MG TAB PO SCH (12:38)
[2021-01-14] MEDS: metFORMIN 500 MG TAB PO SCH ×4 (12:40→20:34)
[2021-01-14] MEDS: amLODIPine 10 MG TAB PO SCH (12:41)
[2021-01-14] MEDS: DULoxetine 30 MG CAP PO SCH (12:45)
[2021-01-14] MEDS: traZODone 50 MG TAB PO SCH (21:28)
[2021-01-15] MEDS: GABAPENTIN 300 MG CAP PO SCH ×3 (05:44→21:38)
--- NOTE | 2021-01-15 07:11 | Progress Note ---
Subjective Date of service: 01/15/21 Principal diagnosis: MDD with psychotic features Subjective Comment: Per Psych Nurse: pt spent last evening interacting with peer, pt is alert and orientedx3, calm and cooperative, pleasant, bright affect, denies si/hi, denies a/v/h, medication compliant, appetite is good, self care, no distress noted, will continue to monitor for safety. Psych Progress HPI Patient describes a good and stable mood, denies being depressed or excessively nervous. Patient eats and sleeps well. Patient denies panic attacks, recurrent nightmares or flashbacks. Patient denies symptoms suggestive of OCD or PTSD. Patient denies hallucinations, paranoia, thought interference and no features suggestive of hypomania or alli. Patiently completely denies suicidal or homicidal thoughts. Reason for continuing inpatient treatment:. Plan for safety discharge at this time Review of Symptoms: Constitutional: Negative for weight loss ENT: Negative for stridor Respiratory: Negative for cough or hemoptysis All other systems reviewed and are negative MENTAL STATUS EXAMINATION General Appearance and Behavior: Age appropriate, good hygiene, wearing appropriate clothes, good eye contact, cooperative polite with questioning. Cooperation: Participating/engaged Psychomotor Behavior: unremarkable and within normal limits Mood: Good Affect and affective range: congruent with mood Thought Process: Fluent/Logical, Thought Content: Within reality, Speech: Normal volume, Regular rate and rhythm, Intellectual Functioning: Average Suicidal Ideation: Denies SI Homicidal Ideation: Denies HI Impulse Control: Unimpaired Insight and Judgment: Normal insight and judgment, Memory: Normal, Attention: Normal, Orientation: Alert, oriented, Assessment and Plan - Patient Problems (1) Major depressive disorder with psychotic features Current Visit: Yes Status: Acute Treatment Plan Continue current medications Patient admitted for inpatient psychiatric evaluation, medication adjustment and close monitoring The patient's behavior, mood, sleep and appetite will be closely monitored. Patient enrolled in individual and group therapeutic sessions and encouraged to attend. Patient provided with a safe and structured environment. Patient's physical health needs will be addressed by the Hospitalist. Hospitalist Consulted Labs including CBC, CMP, Lipid profile and Hemoglobin A1C levels ordered for baseline reference Social Assessment will be completed and the Data Entry Manager will work with patient and family to ensure a suitable and safe disposition Medication adjustment will be made as clinically indicated Usual Wellness Rastafarian/Preservation: - Start Trazodone 50 mg po QHS & 50 mg po QHS PRN between 10 PM & 2 AM for insomnia - Start Melatonin 5 mg po QHS to promote circadian rhythm - Start [place]-3 for brain health, reduce impulsivity, and as adjunctive treatment for mood disorder, continue upon discharge given overall benefits. - Start B1 prophylaxis with 200 mg po for 5 days The patient agreed on the treatment plan, understood the risk, benefit, alternative treatment, potential consequence of no treatment, and gave informed consent. Initial Certification Inpatient psych services: I certify that the inpatient psychiatric services are required for treatment that could reasonably be expected to improve the patient's condition. Estimated days: 2 Post hospital care: primary care provider, psychiatric provider Assessment and Plan - Patient Problems (1) Major depressive disorder with psychotic features Current Visit: Yes Status: Acute Medications and Allergies Allergies Allergy/AdvReac Type Severity Reaction Status Date / Time aripiprazole Allergy Unknown Verified 01/11/21 19:00 Penicillins Allergy Unknown Verified 01/11/21 19:00 Home Medications Medication Instructions Recorded Confirmed Last Taken Type carvediloL [Coreg] 25 mg PO BID 01/11/21 01/11/21 Unknown History Amlodipine Besylate [Norvasc] 10 mg PO DAILY 01/12/21 01/12/21 Unknown History Aspirin EC [Halfprin EC] 81 mg PO QDAY 01/12/21 01/12/21 Unknown History AtorvaSTATin [Lipitor] 40 mg PO QHS 01/12/21 01/12/21 Unknown History Duloxetine HCl 60 mg PO DAILY 01/12/21 01/12/21 Unknown History Fenofibrate Nanocrystallized 48 mg PO DAILY 01/12/21 01/12/21 Unknown History [Fenofibrate] Gabapentin [Neurontin] 600 mg PO TID 01/12/21 01/12/21 Unknown History Sitagliptin Phos/Metformin HCl 1 each PO BID 01/12/21 01/12/21 Unknown History [Janumet 50-1,000 mg Tablet] Active Meds: Active Medications Acetaminophen (Acetaminophen 325 Mg Tab) 650 mg PO Q6H PRN PRN Reason: Pain, Mild (1-3) Amlodipine Besylate (Amlodipine 10 Mg Tab) 10 mg PO DAILY [facility] Last Admin: 01/14/21 12:41 Dose: Not Given Documented by: Aspirin (Aspirin Ec 81 Mg Tab) 81 mg PO QDAY [facility] Last Admin: 01/14/21 12:38 Dose: 81 mg Documented by: Atorvastatin Calcium (Atorvastatin 40 Mg Tab) 40 mg PO QHS [facility] Last Admin: 01/14/21 21:28 Dose: 40 mg Documented by: Carvedilol (Carvedilol 25 Mg Tab) 25 mg PO BID [facility] Last Admin: 01/14/21 21:28 Dose: 25 mg Documented by: Duloxetine HCl (Duloxetine 30 Mg Cap) 60 mg PO QDAY [facility] Last Admin: 01/14/21 12:45 Dose: 60 mg Documented by: Fenofibrate (Fenofibrate 48 Mg Tab) 48 mg PO DAILY [facility] Last Admin: 01/14/21 12:33 Dose: 48 mg Documented by: Gabapentin (Gabapentin 300 Mg Cap) 600 mg PO Q8HR [facility] Last Admin: 01/15/21 05:44 Dose: 600 mg Documented by: Hydroxyzine HCl (Hydroxyzine Hcl 25 Mg Tab) 25 mg PO BID [facility] Last Admin: 01/14/21 21:27 Dose: 25 mg Documented by: Insulin Human Lispro (Insulin Lispro 100 Unit/Ml) 0 unit SUB-Q [facility]; Protocol Last Admin: 01/14/21 21:31 Dose: Not Given Documented by: Linagliptin (Linagliptin 5 Mg Tab) 5 mg PO QDAY [facility] Last Admin: 01/14/21 12:33 Dose: 5 mg Documented by: Metformin HCl (Metformin 500 Mg Tab) 1,000 mg PO BIDDIAB [facility] Last Admin: 01/14/21 20:34 Dose: Not Given Documented by: Olanzapine (Olanzapine 2.5 Mg Tab) 2.5 mg PO QDAY [facility] Last Admin: 01/14/21 20:32 Dose: Not Given Documented by: Trazodone HCl (Trazodone 50 Mg Tab) 75 mg PO QHS [facility] Last Admin: 01/14/21 21:28 Dose: 75 mg Documented by: Results - Results Labs/Vitals: Laboratory Last Values WBC 6.3 K/mm3 (4.5-11.0) 01/12/21 13:19 RBC 4.62 M/mm3 (3.65-5.03) 01/12/21 13:19 Hgb 13.3 gm/dl (11.8-15.2) 01/12/21 13:19 Hct 40.2 % (35.5-45.6) 01/12/21 13:19 MCV 87 fl (84-94) 01/12/21 13:19 MCH 29 pg (28-32) 01/12/21 13:19 MCHC 33 % (32-34) 01/12/21 13:19 RDW 15.1 % (13.2-15.2) 01/12/21 13:19 Plt Count 277 K/mm3 (140-440) 01/12/21 13:19 Lymph % (Auto) 25.9 % (13.4-35.0) 01/12/21 13:19 [place] % (Auto) 8.9 % (0.0-7.3) H 01/12/21 13:19 Eos % (Auto) 2.1 % (0.0-4.3) 01/12/21 13:19 Baso % (Auto) 0.6 % (0.0-1.8) 01/12/21 13:19 Lymph # (Auto) 1.6 K/mm3 (1.2-5.4) 01/12/21 13:19 Yell # (Auto) 0.6 K/mm3 (0.0-0.8) 01/12/21 13:19 Eos # (Auto) 0.1 K/mm3 (0.0-0.4) 01/12/21 13:19 Baso # (Auto) 0.0 K/mm3 (0.0-0.1) 01/12/21 13:19 Seg Neutrophils % 62.5 % (40.0-70.0) 01/12/21 13:19 Seg Neutrophils # 3.9 K/mm3 (1.8-7.7) 01/12/21 13:19 Sodium 139 mmol/L (137-145) 01/12/21 13:19 Potassium 4.5 mmol/L (3.6-5.0) 01/12/21 13:19 Chloride 101.4 mmol/L (98-107) 01/12/21 13:19 Carbon Dioxide 29 mmol/L (22-30) 01/12/21 13:19 Anion Gap 13 mmol/L 01/12/21 13:19 BUN 14 mg/dL (9-20) 01/12/21 13:19 Creatinine 0.8 mg/dL (0.8-1.3) 01/12/21 13:19 Estimated GFR > 60 ml/min 01/12/21 13:19 BUN/Creatinine Ratio 18 % 01/12/21 13:19 Glucose 157 mg/dL (75-100) H 01/12/21 13:19 POC Glucose 117 mg/dL (70-105) H 01/14/21 19:44 Hemoglobin A1c 6.4 % (4-6) H 01/12/21 13:19 Calcium 9.0 mg/dL (8.4-10.2) 01/12/21 13:19 Total Bilirubin 0.40 mg/dL (0.1-1.2) 01/12/21 13:19 AST 28 units/L (5-40) 01/12/21 13:19 ALT 20 units/L (7-56) 01/12/21 13:19 Alkaline Phosphatase 77 units/L (35-129) 01/12/21 13:19 Total Protein 6.1 g/dL (6.3-8.2) L 01/12/21 13:19 Albumin 3.8 g/dL (3.9-5) L 01/12/21 13:19 Albumin/Globulin Ratio 1.7 % 01/12/21 13:19 Triglycerides 161 mg/dL (2-149) H 01/12/21 13:19 Cholesterol 66 mg/dL (50-199) 01/12/21 13:19 LDL Cholesterol Direct 30 mg/dL (50-130) L 01/12/21 13:19 HDL Cholesterol 15 mg/dL (40-59) L 01/12/21 13:19 Cholesterol/HDL Ratio 4.40 % 01/12/21 13:19 TSH 0.620 mlU/mL (0.270-4.200) 01/12/21 13:19 Last Vital Signs Temp 97.9 F 01/14/21 19:59 Pulse 92 H 01/14/21 21:28 Resp 18 01/14/21 19:59 BP 102/69 01/14/21 21:28 Pulse Ox 95 01/14/21 19:59
[2021-01-15] MEDS: INSULIN LISPRO 100 UNIT/ML SUB-Q SCH ×4 (08:25→21:39)
[2021-01-15] MEDS: metFORMIN 500 MG TAB PO SCH ×2 (09:00→17:09)
[2021-01-15] MEDS: hydrOXYzine HCL 25 MG TAB PO SCH ×2 (11:00→21:38)
[2021-01-15] MEDS: DULoxetine 30 MG CAP PO SCH (11:00)
[2021-01-15] MEDS: amLODIPine 10 MG TAB PO SCH (11:00)
[2021-01-15] MEDS: FENOFIBRATE 48 MG TAB PO SCH (11:00)
[2021-01-15] MEDS: carvediloL 25 MG TAB PO SCH ×2 (11:00→21:37)
[2021-01-15] MEDS: LINAGLIPTIN 5 MG TAB PO SCH (11:00)
[2021-01-15] MEDS: ASPIRIN EC 81 MG TAB PO SCH (11:00)
[2021-01-15] MEDS: traZODone 50 MG TAB PO SCH (21:37)
[2021-01-16] MEDS: GABAPENTIN 300 MG CAP PO SCH ×3 (05:06→22:13)
--- NOTE | 2021-01-16 06:54 | Progress Note ---
Subjective Date of service: 01/16/21 Principal diagnosis: MDD with psychotic features Subjective Comment: Per Psych Nurse: Today the patient has spent most of his time in the activity room. He is quiet but interacts appropriately. Patient denies si/hi/ah/vh. He states that today is the first day he is beginning to feel better. His appetite is improving. He is medication compliant. Will continue to monitor patient for safety. Psych Progress HPI Patient reports that he is doing too well, denies of any complaints today. Patient reports no communication with family members since he has been here but his son is aware of his current admission status. Reason for continuing inpatient treatment:. Plan for safety discharge at this time Review of Symptoms: Constitutional: Negative for weight loss ENT: Negative for stridor Respiratory: Negative for cough or hemoptysis All other systems reviewed and are negative MENTAL STATUS EXAMINATION General Appearance and Behavior: Age appropriate, good hygiene, wearing appropriate clothes, good eye contact, cooperative polite with questioning. Cooperation: Participating/engaged Psychomotor Behavior: unremarkable and within normal limits Mood: Good Affect and affective range: congruent with mood Thought Process: Fluent/Logical, Thought Content: Within reality, Speech: Normal volume, Regular rate and rhythm, Intellectual Functioning: Average Suicidal Ideation: Denies SI Homicidal Ideation: Denies HI Impulse Control: Unimpaired Insight and Judgment: Normal insight and judgment, Memory: Normal, Attention: Normal, Orientation: Alert, oriented, Assessment and Plan - Patient Problems (1) Major depressive disorder with psychotic features Current Visit: Yes Status: Acute Treatment Plan Continue current medications Patient admitted for inpatient psychiatric evaluation, medication adjustment and close monitoring The patient's behavior, mood, sleep and appetite will be closely monitored. Patient enrolled in individual and group therapeutic sessions and encouraged to attend. Patient provided with a safe and structured environment. Patient's physical health needs will be addressed by the Hospitalist. Hospitalist Consulted Labs including CBC, CMP, Lipid profile and Hemoglobin A1C levels ordered for baseline reference Social Assessment will be completed and the Treer will work with patient and family to ensure a suitable and safe disposition Medication adjustment will be made as clinically indicated Usual Wellness Jain/Preservation: - Start Trazodone 50 mg po QHS & 50 mg po QHS PRN between 10 PM & 2 AM for insomnia - Start Melatonin 5 mg po QHS to promote circadian rhythm - Start [place]-3 for brain health, reduce impulsivity, and as adjunctive treatment for mood disorder, continue upon discharge given overall benefits. - Start B1 prophylaxis with 200 mg po for 5 days The patient agreed on the treatment plan, understood the risk, benefit, alternative treatment, potential consequence of no treatment, and gave informed consent. Initial Certification Inpatient psych services: I certify that the inpatient psychiatric services are required for treatment that could reasonably be expected to improve the patient's condition. Estimated days: 2 Post hospital care: primary care provider, psychiatric provider Assessment and Plan - Patient Problems (1) Major depressive disorder with psychotic features Current Visit: Yes Status: Acute Medications and Allergies Allergies Allergy/AdvReac Type Severity Reaction Status Date / Time aripiprazole Allergy Unknown Verified 01/11/21 19:00 Penicillins Allergy Unknown Verified 01/11/21 19:00 Home Medications Medication Instructions Recorded Confirmed Last Taken Type carvediloL [Coreg] 25 mg PO BID 01/11/21 01/11/21 Unknown History Amlodipine Besylate [Norvasc] 10 mg PO DAILY 01/12/21 01/12/21 Unknown History Aspirin EC [Halfprin EC] 81 mg PO QDAY 01/12/21 01/12/21 Unknown History AtorvaSTATin [Lipitor] 40 mg PO QHS 01/12/21 01/12/21 Unknown History Duloxetine HCl 60 mg PO DAILY 01/12/21 01/12/21 Unknown History Fenofibrate Nanocrystallized 48 mg PO DAILY 01/12/21 01/12/21 Unknown History [Fenofibrate] Gabapentin [Neurontin] 600 mg PO TID 01/12/21 01/12/21 Unknown History Sitagliptin Phos/Metformin HCl 1 each PO BID 01/12/21 01/12/21 Unknown History [Janumet 50-1,000 mg Tablet] Active Meds: Active Medications Acetaminophen (Acetaminophen 325 Mg Tab) 650 mg PO Q6H PRN PRN Reason: Pain, Mild (1-3) Amlodipine Besylate (Amlodipine 10 Mg Tab) 10 mg PO DAILY [facility] Last Admin: 01/15/21 11:00 Dose: 10 mg Documented by: Aspirin (Aspirin Ec 81 Mg Tab) 81 mg PO QDAY [facility] Last Admin: 01/15/21 11:00 Dose: 81 mg Documented by: Atorvastatin Calcium (Atorvastatin 40 Mg Tab) 40 mg PO QHS [facility] Last Admin: 01/15/21 21:39 Dose: 40 mg Documented by: Carvedilol (Carvedilol 25 Mg Tab) 25 mg PO BID [facility] Last Admin: 01/15/21 21:37 Dose: 25 mg Documented by: Duloxetine HCl (Duloxetine 30 Mg Cap) 60 mg PO QDAY [facility] Last Admin: 01/15/21 11:00 Dose: 60 mg Documented by: Fenofibrate (Fenofibrate 48 Mg Tab) 48 mg PO DAILY [facility] Last Admin: 01/15/21 11:00 Dose: 48 mg Documented by: Gabapentin (Gabapentin 300 Mg Cap) 600 mg PO Q8HR [facility] Last Admin: 01/16/21 05:06 Dose: 600 mg Documented by: Hydroxyzine HCl (Hydroxyzine Hcl 25 Mg Tab) 25 mg PO BID [facility] Last Admin: 01/15/21 21:38 Dose: 25 mg Documented by: Insulin Human Lispro (Insulin Lispro 100 Unit/Ml) 0 unit SUB-Q [facility]; Protocol Last Admin: 01/15/21 21:39 Dose: Not Given Documented by: Linagliptin (Linagliptin 5 Mg Tab) 5 mg PO QDAY [facility] Last Admin: 01/15/21 11:00 Dose: 5 mg Documented by: Metformin HCl (Metformin 500 Mg Tab) 1,000 mg PO BIDDIAB [facility] Last Admin: 01/15/21 17:09 Dose: 1,000 mg Documented by: Olanzapine (Olanzapine 2.5 Mg Tab) 2.5 mg PO QDAY [facility] Last Admin: 01/15/21 11:00 Dose: 2.5 mg Documented by: Trazodone HCl (Trazodone 50 Mg Tab) 75 mg PO QHS [facility] Last Admin: 01/15/21 21:37 Dose: 75 mg Documented by: Results - Results Labs/Vitals: Laboratory Last Values WBC 6.3 K/mm3 (4.5-11.0) 01/12/21 13:19 RBC 4.62 M/mm3 (3.65-5.03) 01/12/21 13:19 Hgb 13.3 gm/dl (11.8-15.2) 01/12/21 13:19 Hct 40.2 % (35.5-45.6) 01/12/21 13:19 MCV 87 fl (84-94) 01/12/21 13:19 MCH 29 pg (28-32) 01/12/21 13:19 MCHC 33 % (32-34) 01/12/21 13:19 RDW 15.1 % (13.2-15.2) 01/12/21 13:19 Plt Count 277 K/mm3 (140-440) 01/12/21 13:19 Lymph % (Auto) 25.9 % (13.4-35.0) 01/12/21 13:19 [place] % (Auto) 8.9 % (0.0-7.3) H 01/12/21 13:19 Eos % (Auto) 2.1 % (0.0-4.3) 01/12/21 13:19 Baso % (Auto) 0.6 % (0.0-1.8) 01/12/21 13:19 Lymph # (Auto) 1.6 K/mm3 (1.2-5.4) 01/12/21 13:19 [place] # (Auto) 0.6 K/mm3 (0.0-0.8) 01/12/21 13:19 Eos # (Auto) 0.1 K/mm3 (0.0-0.4) 01/12/21 13:19 Baso # (Auto) 0.0 K/mm3 (0.0-0.1) 01/12/21 13:19 Seg Neutrophils % 62.5 % (40.0-70.0) 01/12/21 13:19 Seg Neutrophils # 3.9 K/mm3 (1.8-7.7) 01/12/21 13:19 Sodium 139 mmol/L (137-145) 01/12/21 13:19 Potassium 4.5 mmol/L (3.6-5.0) 01/12/21 13:19 Chloride 101.4 mmol/L (98-107) 01/12/21 13:19 Carbon Dioxide 29 mmol/L (22-30) 01/12/21 13:19 Anion Gap 13 mmol/L 01/12/21 13:19 BUN 14 mg/dL (9-20) 01/12/21 13:19 Creatinine 0.8 mg/dL (0.8-1.3) 01/12/21 13:19 Estimated GFR > 60 ml/min 01/12/21 13:19 BUN/Creatinine Ratio 18 % 01/12/21 13:19 Glucose 157 mg/dL (75-100) H 01/12/21 13:19 POC Glucose 125 mg/dL (70-105) H 01/15/21 20:17 Hemoglobin A1c 6.4 % (4-6) H 01/12/21 13:19 Calcium 9.0 mg/dL (8.4-10.2) 01/12/21 13:19 Total Bilirubin 0.40 mg/dL (0.1-1.2) 01/12/21 13:19 AST 28 units/L (5-40) 01/12/21 13:19 ALT 20 units/L (7-56) 01/12/21 13:19 Alkaline Phosphatase 77 units/L (35-129) 01/12/21 13:19 Total Protein 6.1 g/dL (6.3-8.2) L 01/12/21 13:19 Albumin 3.8 g/dL (3.9-5) L 01/12/21 13:19 Albumin/Globulin Ratio 1.7 % 01/12/21 13:19 Triglycerides 161 mg/dL (2-149) H 01/12/21 13:19 Cholesterol 66 mg/dL (50-199) 01/12/21 13:19 LDL Cholesterol Direct 30 mg/dL (50-130) L 01/12/21 13:19 HDL Cholesterol 15 mg/dL (40-59) L 01/12/21 13:19 Cholesterol/HDL Ratio 4.40 % 01/12/21 13:19 TSH 0.620 mlU/mL (0.270-4.200) 01/12/21 13:19 Last Vital Signs Temp 97.7 F 01/15/21 19:42 Pulse 72 01/15/21 21:37 Resp 16 01/15/21 19:42 BP 127/71 01/15/21 21:37 Pulse Ox 95 01/15/21 19:42
[2021-01-16] MEDS: INSULIN LISPRO 100 UNIT/ML SUB-Q SCH ×4 (08:23→22:12)
[2021-01-16] MEDS: metFORMIN 500 MG TAB PO SCH ×2 (09:46→16:51)
[2021-01-16] MEDS: DULoxetine 30 MG CAP PO SCH (09:46)
[2021-01-16] MEDS: carvediloL 25 MG TAB PO SCH ×2 (09:47→22:13)
[2021-01-16] MEDS: FENOFIBRATE 48 MG TAB PO SCH (09:47)
[2021-01-16] MEDS: ASPIRIN EC 81 MG TAB PO SCH (09:47)
[2021-01-16] MEDS: LINAGLIPTIN 5 MG TAB PO SCH (09:47)
[2021-01-16] MEDS: hydrOXYzine HCL 25 MG TAB PO SCH ×2 (09:47→22:13)
[2021-01-16] MEDS: amLODIPine 10 MG TAB PO SCH (09:48)
[2021-01-16] MEDS: traZODone 50 MG TAB PO SCH (22:16)
--- NOTE | 2021-01-17 07:57 | Progress Note ---
Subjective Date of service: 01/17/21 Principal diagnosis: MDD with psychotic features Subjective Comment: Per Psych Nurse: Today the patient spent part of his time in the activity room interacting appropriately with his peers and he napped throughout the day. He denies si/hi/ah/vh. His appetite is good and he is medication compliant. Will continue to monitor patient for safety. Psych Progress HPI Patient endorses he is doing much better now than he was, when he first got here. Patient reports sleeping good, able to relax and is less anxious. Patient states he feels ready to be discharged but would need transportation. Reason for continuing inpatient treatment:. Plan for safety discharge at this time Review of Symptoms: Constitutional: Negative for weight loss ENT: Negative for stridor Respiratory: Negative for cough or hemoptysis All other systems reviewed and are negative MENTAL STATUS EXAMINATION General Appearance and Behavior: Age appropriate, good hygiene, wearing appropriate clothes, good eye contact, cooperative polite with questioning. Cooperation: Participating/engaged Psychomotor Behavior: unremarkable and within normal limits Mood: Good Affect and affective range: congruent with mood Thought Process: Fluent/Logical, Thought Content: Within reality, Speech: Normal volume, Regular rate and rhythm, Intellectual Functioning: Average Suicidal Ideation: Denies SI Homicidal Ideation: Denies HI Impulse Control: Unimpaired Insight and Judgment: Normal insight and judgment, Memory: Normal, Attention: Normal, Orientation: Alert, oriented, Assessment and Plan - Patient Problems (1) Major depressive disorder with psychotic features Current Visit: Yes Status: Acute Treatment Plan Continue current medications Patient admitted for inpatient psychiatric evaluation, medication adjustment and close monitoring The patient's behavior, mood, sleep and appetite will be closely monitored. Patient enrolled in individual and group therapeutic sessions and encouraged to attend. Patient provided with a safe and structured environment. Patient's physical health needs will be addressed by the Hospitalist. Hospitalist Consulted Labs including CBC, CMP, Lipid profile and Hemoglobin A1C levels ordered for baseline reference Social Assessment will be completed and the Welder Boilermaker will work with patient and family to ensure a suitable and safe disposition Medication adjustment will be made as clinically indicated Usual Wellness Jewish/Preservation: - Start Trazodone 50 mg po QHS & 50 mg po QHS PRN between 10 PM & 2 AM for insomnia - Start Melatonin 5 mg po QHS to promote circadian rhythm - Start [place]-3 for brain health, reduce impulsivity, and as adjunctive treatment for mood disorder, continue upon discharge given overall benefits. - Start B1 prophylaxis with 200 mg po for 5 days The patient agreed on the treatment plan, understood the risk, benefit, alternative treatment, potential consequence of no treatment, and gave informed consent. Initial Certification Inpatient psych services: I certify that the inpatient psychiatric services are required for treatment that could reasonably be expected to improve the patient's condition. Estimated days: 2 Post hospital care: primary care provider, psychiatric provider Assessment and Plan - Patient Problems (1) Major depressive disorder with psychotic features Current Visit: Yes Status: Acute Medications and Allergies Allergies Allergy/AdvReac Type Severity Reaction Status Date / Time aripiprazole Allergy Unknown Verified 01/11/21 19:00 Penicillins Allergy Unknown Verified 01/11/21 19:00 Home Medications Medication Instructions Recorded Confirmed Last Taken Type carvediloL [Coreg] 25 mg PO BID 01/11/21 01/11/21 Unknown History Amlodipine Besylate [Norvasc] 10 mg PO DAILY 01/12/21 01/12/21 Unknown History Aspirin EC [Halfprin EC] 81 mg PO QDAY 01/12/21 01/12/21 Unknown History AtorvaSTATin [Lipitor] 40 mg PO QHS 01/12/21 01/12/21 Unknown History Duloxetine HCl 60 mg PO DAILY 01/12/21 01/12/21 Unknown History Fenofibrate Nanocrystallized 48 mg PO DAILY 01/12/21 01/12/21 Unknown History [Fenofibrate] Gabapentin [Neurontin] 600 mg PO TID 01/12/21 01/12/21 Unknown History Sitagliptin Phos/Metformin HCl 1 each PO BID 01/12/21 01/12/21 Unknown History [Janumet 50-1,000 mg Tablet] Active Meds: Active Medications Acetaminophen (Acetaminophen 325 Mg Tab) 650 mg PO Q6H PRN PRN Reason: Pain, Mild (1-3) Amlodipine Besylate (Amlodipine 10 Mg Tab) 10 mg PO DAILY [facility] Last Admin: 01/16/21 09:48 Dose: 10 mg Documented by: Aspirin (Aspirin Ec 81 Mg Tab) 81 mg PO QDAY [facility] Last Admin: 01/16/21 09:47 Dose: 81 mg Documented by: Atorvastatin Calcium (Atorvastatin 40 Mg Tab) 40 mg PO QHS [facility] Last Admin: 01/16/21 22:13 Dose: 40 mg Documented by: Carvedilol (Carvedilol 25 Mg Tab) 25 mg PO BID [facility] Last Admin: 01/16/21 22:13 Dose: 25 mg Documented by: Duloxetine HCl (Duloxetine 30 Mg Cap) 60 mg PO QDAY [facility] Last Admin: 01/16/21 09:46 Dose: 60 mg Documented by: Fenofibrate (Fenofibrate 48 Mg Tab) 48 mg PO DAILY [facility] Last Admin: 01/16/21 09:47 Dose: 48 mg Documented by: Gabapentin (Gabapentin 300 Mg Cap) 600 mg PO Q8HR [facility] Last Admin: 01/16/21 22:13 Dose: 600 mg Documented by: Hydroxyzine HCl (Hydroxyzine Hcl 25 Mg Tab) 25 mg PO BID [facility] Last Admin: 01/16/21 22:13 Dose: 25 mg Documented by: Insulin Human Lispro (Insulin Lispro 100 Unit/Ml) 0 unit SUB-Q [facility]; Protocol Last Admin: 01/16/21 22:12 Dose: Not Given Documented by: Linagliptin (Linagliptin 5 Mg Tab) 5 mg PO QDAY [facility] Last Admin: 01/16/21 09:47 Dose: 5 mg Documented by: Metformin HCl (Metformin 500 Mg Tab) 1,000 mg PO BIDDIAB [facility] Last Admin: 01/16/21 16:51 Dose: 1,000 mg Documented by: Olanzapine (Olanzapine 2.5 Mg Tab) 2.5 mg PO QDAY [facility] Last Admin: 01/16/21 09:46 Dose: 2.5 mg Documented by: Trazodone HCl (Trazodone 50 Mg Tab) 75 mg PO QHS [facility] Last Admin: 01/16/21 22:16 Dose: 75 mg Documented by: Results - Results Labs/Vitals: Laboratory Last Values WBC 6.3 K/mm3 (4.5-11.0) 01/12/21 13:19 RBC 4.62 M/mm3 (3.65-5.03) 01/12/21 13:19 Hgb 13.3 gm/dl (11.8-15.2) 01/12/21 13:19 Hct 40.2 % (35.5-45.6) 01/12/21 13:19 MCV 87 fl (84-94) 01/12/21 13:19 MCH 29 pg (28-32) 01/12/21 13:19 MCHC 33 % (32-34) 01/12/21 13:19 RDW 15.1 % (13.2-15.2) 01/12/21 13:19 Plt Count 277 K/mm3 (140-440) 01/12/21 13:19 Lymph % (Auto) 25.9 % (13.4-35.0) 01/12/21 13:19 [place] % (Auto) 8.9 % (0.0-7.3) H 01/12/21 13:19 Eos % (Auto) 2.1 % (0.0-4.3) 01/12/21 13:19 Baso % (Auto) 0.6 % (0.0-1.8) 01/12/21 13:19 Lymph # (Auto) 1.6 K/mm3 (1.2-5.4) 01/12/21 13:19 [place] # (Auto) 0.6 K/mm3 (0.0-0.8) 01/12/21 13:19 Eos # (Auto) 0.1 K/mm3 (0.0-0.4) 01/12/21 13:19 Baso # (Auto) 0.0 K/mm3 (0.0-0.1) 01/12/21 13:19 Seg Neutrophils % 62.5 % (40.0-70.0) 01/12/21 13:19 Seg Neutrophils # 3.9 K/mm3 (1.8-7.7) 01/12/21 13:19 Sodium 139 mmol/L (137-145) 01/12/21 13:19 Potassium 4.5 mmol/L (3.6-5.0) 01/12/21 13:19 Chloride 101.4 mmol/L (98-107) 01/12/21 13:19 Carbon Dioxide 29 mmol/L (22-30) 01/12/21 13:19 Anion Gap 13 mmol/L 01/12/21 13:19 BUN 14 mg/dL (9-20) 01/12/21 13:19 Creatinine 0.8 mg/dL (0.8-1.3) 01/12/21 13:19 Estimated GFR > 60 ml/min 01/12/21 13:19 BUN/Creatinine Ratio 18 % 01/12/21 13:19 Glucose 157 mg/dL (75-100) H 01/12/21 13:19 POC Glucose 97 mg/dL (70-105) 01/16/21 19:54 Hemoglobin A1c 6.4 % (4-6) H 01/12/21 13:19 Calcium 9.0 mg/dL (8.4-10.2) 01/12/21 13:19 Total Bilirubin 0.40 mg/dL (0.1-1.2) 01/12/21 13:19 AST 28 units/L (5-40) 01/12/21 13:19 ALT 20 units/L (7-56) 01/12/21 13:19 Alkaline Phosphatase 77 units/L (35-129) 01/12/21 13:19 Total Protein 6.1 g/dL (6.3-8.2) L 01/12/21 13:19 Albumin 3.8 g/dL (3.9-5) L 01/12/21 13:19 Albumin/Globulin Ratio 1.7 % 01/12/21 13:19 Triglycerides 161 mg/dL (2-149) H 01/12/21 13:19 Cholesterol 66 mg/dL (50-199) 01/12/21 13:19 LDL Cholesterol Direct 30 mg/dL (50-130) L 01/12/21 13:19 HDL Cholesterol 15 mg/dL (40-59) L 01/12/21 13:19 Cholesterol/HDL Ratio 4.40 % 01/12/21 13:19 TSH 0.620 mlU/mL (0.270-4.200) 01/12/21 13:19 Last Vital Signs Temp 97.7 F 01/16/21 19:19 Pulse 84 01/16/21 22:13 Resp 16 01/16/21 19:19 BP 112/68 01/16/21 22:13 Pulse Ox 95 01/16/21 19:19
[2021-01-17] MEDS: DULoxetine 30 MG CAP PO SCH (10:10)
[2021-01-17] MEDS: metFORMIN 500 MG TAB PO SCH (10:10)
[2021-01-17] MEDS: FENOFIBRATE 48 MG TAB PO SCH (10:11)
[2021-01-17] MEDS: hydrOXYzine HCL 25 MG TAB PO SCH (10:12)
[2021-01-17] MEDS: ASPIRIN EC 81 MG TAB PO SCH (10:12)
[2021-01-17] MEDS: LINAGLIPTIN 5 MG TAB PO SCH (10:12)
[2021-01-17] MEDS: carvediloL 25 MG TAB PO SCH (10:16)
[2021-01-17] MEDS: amLODIPine 10 MG TAB PO SCH (10:17)
[2021-01-17 10:18] VITALS: BP 108/70
--- NOTE | 2021-01-17 12:10 | Discharge Summary ---
Providers - Providers Date of Admission: 01/12/21 00:38 Date of discharge: 01/17/21 Attending physician: JENNY BROWN MD 01/11/21 22:38 Consult to Physician [CONS] Routine Comment: Consulting Provider: OSEI AL Physician Instructions: Reason For Exam: psych consult Primary care physician: LATHE SCALPER OPERATOR Hospitalization Reason for admission: MDD Condition: Good Hospital course: The patient was provided inpatient psychiatric treatment with safe and supportive environment, group/individual therapy, psychiatric medication, medication adjustment, adverse effect monitor, medical evaluation, medical treatment, social service assessment, social support meeting, placement assessment and psycho-education. The patients mood, cognition, behavior, motivation, compliance to treatment and appreciation on family/social support are improved and stabilized. At the time of discharge, the patient had no s uicidal ideas, no homicidal ideas, no aggressive thoughts, no endangering behavior and no debilitating adverse effects. The patient agreed on the treatment plan, understood the risk, benefit, alternative treatment, potential consequence of no treatment, and gave informed consent. Over 35 minutes spent for discharge process, education and behavioral counselling. Disposition: DC-01 TO HOME OR SELFCARE Allergies/Adverse Reactions: Allergies aripiprazole Allergy (Verified 01/11/21 19:00) Unknown Penicillins Allergy (Verified 01/11/21 19:00) Unknown Vital Signs: Last Vital Signs Temp 97.5 F L 01/17/21 10:17 Pulse 77 01/17/21 10:17 Resp 16 01/17/21 10:17 BP 108/70 01/17/21 10:17 Pulse Ox 95 01/16/21 19:19 Last Lab: Laboratory Last Values WBC 6.3 K/mm3 (4.5-11.0) 01/12/21 13:19 RBC 4.62 M/mm3 (3.65-5.03) 01/12/21 13:19 Hgb 13.3 gm/dl (11.8-15.2) 01/12/21 13:19 Hct 40.2 % (35.5-45.6) 01/12/21 13:19 MCV 87 fl (84-94) 01/12/21 13:19 MCH 29 pg (28-32) 01/12/21 13:19 MCHC 33 % (32-34) 01/12/21 13:19 RDW 15.1 % (13.2-15.2) 01/12/21 13:19 Plt Count 277 K/mm3 (140-440) 01/12/21 13:19 Lymph % (Auto) 25.9 % (13.4-35.0) 01/12/21 13:19 [place] % (Auto) 8.9 % (0.0-7.3) H 01/12/21 13:19 Eos % (Auto) 2.1 % (0.0-4.3) 01/12/21 13:19 Baso % (Auto) 0.6 % (0.0-1.8) 01/12/21 13:19 Lymph # (Auto) 1.6 K/mm3 (1.2-5.4) 01/12/21 13:19 [place] # (Auto) 0.6 K/mm3 (0.0-0.8) 01/12/21 13:19 Eos # (Auto) 0.1 K/mm3 (0.0-0.4) 01/12/21 13:19 Baso # (Auto) 0.0 K/mm3 (0.0-0.1) 01/12/21 13:19 Seg Neutrophils % 62.5 % (40.0-70.0) 01/12/21 13:19 Seg Neutrophils # 3.9 K/mm3 (1.8-7.7) 01/12/21 13:19 Sodium 139 mmol/L (137-145) 01/12/21 13:19 Potassium 4.5 mmol/L (3.6-5.0) 01/12/21 13:19 Chloride 101.4 mmol/L (98-107) 01/12/21 13:19 Carbon Dioxide 29 mmol/L (22-30) 01/12/21 13:19 Anion Gap 13 mmol/L 01/12/21 13:19 BUN 14 mg/dL (9-20) 01/12/21 13:19 Creatinine 0.8 mg/dL (0.8-1.3) 01/12/21 13:19 Estimated GFR > 60 ml/min 01/12/21 13:19 BUN/Creatinine Ratio 18 % 01/12/21 13:19 Glucose 157 mg/dL (75-100) H 01/12/21 13:19 POC Glucose 96 mg/dL (70-105) 01/17/21 07:46 Hemoglobin A1c 6.4 % (4-6) H 01/12/21 13:19 Calcium 9.0 mg/dL (8.4-10.2) 01/12/21 13:19 Total Bilirubin 0.40 mg/dL (0.1-1.2) 01/12/21 13:19 AST 28 units/L (5-40) 01/12/21 13:19 ALT 20 units/L (7-56) 01/12/21 13:19 Alkaline Phosphatase 77 units/L (35-129) 01/12/21 13:19 Total Protein 6.1 g/dL (6.3-8.2) L 01/12/21 13:19 Albumin 3.8 g/dL (3.9-5) L 01/12/21 13:19 Albumin/Globulin Ratio 1.7 % 01/12/21 13:19 Triglycerides 161 mg/dL (2-149) H 01/12/21 13:19 Cholesterol 66 mg/dL (50-199) 01/12/21 13:19 LDL Cholesterol Direct 30 mg/dL (50-130) L 01/12/21 13:19 HDL Cholesterol 15 mg/dL (40-59) L 01/12/21 13:19 Cholesterol/HDL Ratio 4.40 % 01/12/21 13:19 TSH 0.620 mlU/mL (0.270-4.200) 01/12/21 13:19 - Discharge Diagnoses (1) Major depressive disorder with psychotic features Status: Acute Core Measure Documentation - Palliative Care Palliative Care/ Comfort Measures: Not Applicable - Core Measures Any of the following diagnoses?: none Exam - Constitutional Vitals: Temp Pulse Resp BP Pulse Ox 97.5 F L 77 16 108/70 95 01/17/21 10:17 01/17/21 10:17 01/17/21 10:17 01/17/21 10:17 01/16/21 19:19 General appearance: Present: no acute distress - EENT Eyes: Present: PERRL, EOM intact ENT: hearing intact, clear oral mucosa - Neck Neck: Present: supple, normal ROM - Abdominal Male genitourinary: Present: deferred - Integumentary Integumentary: Present: clear, warm, dry Plan Activity: no restrictions Care Plan Goals: Goals: Maintain good and stable mental health. Plan of Treatment: The patient should be compliant with medications, not to use drugs and not to drink alcohol. The patient understands that if suicidal ideas, homicidal ideas, or any endangering thoughts arise, the patient should immediately seek for emergent assistance including but not limited to crisis hot line and emergency room. Follow up with outpatient Psychiatrist and PCP within 7 - 14 days of discharge. Follow up with: PRIMARY CARE,MD [Primary Care Provider] - 7 Days Prescriptions: DULoxetine [Cymbalta] 60 mg PO QDAY #30 capsule OLANzapine [ZyPREXA] 2.5 mg PO QDAY #30 tablet
[2021-01-17] MEDS: INSULIN LISPRO 100 UNIT/ML SUB-Q SCH (12:59)
[2021-01-17] MEDS: GABAPENTIN 300 MG CAP PO SCH (13:04)
== END 2021-01-17 16:15 | disposition home or self-care (01) | DRG 885 ==
LOC: UNDOADMIN 18:35 → 3A 18:35 → 5A 01-12 00:38
PROVIDERS: ADMIT Psychiatry & Neurology Psychiatry; ATTEND Psychiatry & Neurology Psychiatry
DX: F33.3 Major depressive disorder, recurrent, severe with psychotic symptoms (principal); E03.9 Hypothyroidism, unspecified; Z79.84 Long term (current) use of oral hypoglycemic drugs; E66.9 Obesity, unspecified; Z68.33 Body mass index [BMI] 33.0-33.9, adult; E78.5 Hyperlipidemia, unspecified; I10 Essential (primary) hypertension; F41.9 Anxiety disorder, unspecified; K21.9 Gastro-esophageal reflux disease without esophagitis; E11.9 Type 2 diabetes mellitus without complications; Z88.8 Allergy status to other drugs, medicaments and biological substances; Z88.0 Allergy status to penicillin; Z79.899 Other long term (current) drug therapy; Z79.891 Long term (current) use of opiate analgesic; Z79.82 Long term (current) use of aspirin
CPT/HCPCS: 36415; 80048; 80053; 80061; 82962; 83036; 84443; 85025; G0378; A9270-GY